=== PATIENT | male | born 1980 | race Caucasian/White ===

== ENCOUNTER 2016-04-01 20:27 | Inpatient (IN) | payer BC ==
[~2016-04-01] VITALS: Ht 188 cm; Wt 84.5 kg
--- NOTE | ~2016-04-01 | OR ---
PATIENT'S NAME: RYANNE FRY AGE: 35 Y [address] ROOM: [address] [place] [id number] LOCATION: [facility] [place] ADMIT DATE: 04/01/2016 OR/Procedure Report DISCHARGE DATE: FAMILY PHYSICIAN: Michaela Parker MD ATTENDING PHYSICIAN: ARABELLA CHA SURGEON: Arabella Cha MD LOGGING ENGINEER: DATE OF PROCEDURE: 04/02/2016 PREOPERATIVE DIAGNOSIS: Right tibia and fibula shaft fractures (distal 1/3 shaft fractures). POSTOPERATIVE DIAGNOSIS: Right tibia and fibula shaft fractures (distal 1/3 shaft fractures). PROCEDURE PERFORMED: Intramedullary rodding of right tibial shaft fracture. ESTIMATED BLOOD LOSS: Less than 100 mL. COMPLICATIONS: None. IMPLANTS: Synthes titanium tibial nail (10 mm x 375 mm with 5 mm proximal end cap), 2 proximal static 5.0 mm locking screws, and 2 distal 5.0 mm static locking screws. INDICATION FOR PROCEDURE: The patient is a 35-year-old male, who injured his right leg when his horse rolled upon him the evening prior to surgery. The injury is closed and neurovascularly intact. There was an oblique fracture of the distal third of the tibial shaft extending down to within approximately 6 cm of the tibial plafond. There is an associated, severely comminuted fracture of the distal third of the fibula shaft above the syndesmosis. There is no syndesmosis widening. Risks, benefits, limitations, and alternatives to this procedure have been thoroughly reviewed, and informed consent has been granted. We have specifically reviewed risks and implications of infection, neurovascular complications, compartment syndrome, malunion, nonunion, neurovascular complications, and potential need for further surgery (including, bone graft). I have emphasized to them that the distal third of the tibia has suboptimal blood supply and that this is associated with potential for delayed union and/or nonunion. They understand and accept this, and informed consent has been granted. DESCRIPTION OF PROCEDURE: The patient was positioned supine. A well-padded pneumatic tourniquet was placed around his right proximal thigh. The right lower extremity was prepped and draped with vigilant sterile technique. The distal third of the tibia was markedly unstable in all planes. Skin was PATIENT'S NAME: RYANNE FRY [facility] AGE: 35 Y [address] ROOM: [id number] [place], [place] [address] LOCATION: [facility] [place] ADMIT DATE: 04/01/2016 OR/Procedure Report DISCHARGE DATE: FAMILY PHYSICIAN: Michaela Parker MD ATTENDING PHYSICIAN: ARABELLA CHA. There was mild swelling. There was mild ecchymosis. 2+ dorsalis pedis pulse. After the right lower extremity had been elevated and exsanguinated with an Esmarch wrap, the pneumatic tourniquet was inflated to 300 mmHg. It should be noted that the tourniquet was released upon initiating reaming. Two 4 mm stab incisions were made over the anterolateral and anteromedial tibia, and blunt dissection proceeded down to the tibial shaft fragments. A pointed reduction clamp was utilized to reduce the fracture. A longitudinal midline incision was made over the patellar tendon. The patellar tendon was split at its midline to expose the entry portal for the nail. A threaded guidewire was utilized to confirm appropriate position of the entry point, and this was confirmed under AP and lateral fluoroscopic guidance. The cylindrical soft tissue protector was inserted down to the entry point, and the entrance reamer was utilized. A ball-tipped guidewire was subsequently placed across the fracture site and it was confirmed to be centrally positioned in the distal fragment under AP and lateral fluoroscopic guidance. The tibia was reamed up to a size 11.5. The 10 mm sanjay was inserted over the guidewire to the appropriate depth while reduction was held, and the guidewire was removed. Anatomic reduction of the tibial fracture was confirmed under AP and lateral fluoroscopic guidance. Two proximal static interlocking screws were placed through the outrigger from medial to lateral, and the proximal end cap was inserted. The distal 2 interlocking screws were placed using the radiolucent drill. Optimal position of the hardware and anatomic reduction of the tibia fracture was confirmed under AP and lateral fluoroscopic guidance. The fibular fracture was noted to be well-aligned (with appropriate length, he had absence of rotational malalignment). It should be noted that the proximal interlocking screws were placed through a single medial stab incision. The distal interlocking screws were placed through 2 separate stab incisions. The interlocking screws had been placed with creation of a superficial incision followed by blunt dissection down to the medial tibial cortex at each of the 4 interlocking screw sites. All incisions were thoroughly irrigated with sterile saline containing bacitracin prior to closure. The patellar tendon was loosely reapproximated with simple interrupted 0 Vicryl. Skin was closed with superficial, buried, interrupted 2-0 Vicryl, followed by surgical live at the proximal incisions. Distal incisions were closed with superficial, buried, interrupted 3-0 Monocryl, followed by horizontal mattress interrupted 3-0 nylon sutures. The dressings consisted of Xeroform gauze, followed by ABD pads, and an Ra wrap followed by a Cam boot. PATIENT'S NAME: RYANNE RFY AGE: 35 Y [address] ROOM: [address] [address] LOCATION: [facility] [place] ADMIT DATE: 04/01/2016 OR/Procedure Report DISCHARGE DATE: FAMILY PHYSICIAN: Michaela Parker MD ATTENDING PHYSICIAN: ARABELLA CHA POSTOPERATIVE REHABILITATION PLAN: Nonweightbearing for 2 months. MD DOMINIQUE CALDERON/eamon /[id number] d: 04/03/16 0747 t: 04/03/16 1405, OPERATIVE SUMMARY
--- NOTE | ~2016-04-01 | ER ---
PATIENT'S NAME: RYANNE FRY [facility] AGE: 35 Y [address] ROOM: [place] [address] LOCATION: [facility] ADMIT DATE: 04/01/2016 ER/Outpatient Report DISCHARGE DATE: FAMILY PHYSICIAN: Michaela Parker MD ATTENDING PHYSICIAN: ARABELLA CHA Admission date and time documented on the medical record. I saw the patient at 2025 hours. CHIEF COMPLAINT: Right tib-fib fracture. HISTORY OF PRESENT ILLNESS: The patient is a 35-year-old male who was transferred from [place] via ground ambulance for evaluation here at [facility] and orthopedic consultation. At 1600 hours, the patient was riding a horse, the horse fell down, he went to the ground, the horse rolled onto his right leg. He was taken to [facility]. X-rays revealed a comminuted, displaced, distal tib-fib fracture. The fracture site is about 3 inches above the ankle joint. Does not involve the joint that I could see. Is was a closed fracture. The patient was in an air splint on arrival here. He was awake, alert, responsive. Denied any head pain, neck pain, spine pain. No eyes, ears, nose, or throat pain. No lightheadedness, dizziness, syncope, or near syncope. No other trauma. No recent cough, colds, flus, fever, chills, or sweats. No chest pain or shortness of breath. No abdominal pain, nausea, vomiting, diarrhea. No urinary symptomatology. Other than the right lower leg injury with a tib-fib fracture, he has no other extremity injuries or problems. No skin eruptions or rashes. No history of neuro changes, psych issues, endocrine problems. HOME MEDICATIONS: See attached medication list. ALLERGIES: NONE. SOCIAL HISTORY: Nonsmoker. Occasional intake of alcohol. SIGNIFICANT PAST MEDICAL HISTORY: Gastroesophageal reflux. OPERATIONS: Fundoplication, left wrist surgery. REVIEW OF SYSTEMS: All systems reviewed by me are negative with the exception of those discussed PATIENT'S NAME: RYANNE FRY [facility] AGE: 35 Y [address] ROOM: [place] [address] LOCATION: [facility] ADMIT DATE: 04/01/2016 ER/Outpatient Report DISCHARGE DATE: FAMILY PHYSICIAN: Michaela Parker MD ATTENDING PHYSICIAN: ARABELLA CHA in the history of present illness. PHYSICAL EXAMINATION: VITAL SIGNS: Temperature 98.9, tympanic; pulse 83; respirations 16; blood pressure 144/79; O2 saturation on room air was 94%. HEENT: Head, normocephalic. No abrasion, contusion, laceration, or swelling of the scalp or face. Eyes, extraocular muscles intact. PERRL. Ears, clear TMs bilaterally. Nose, clear. Throat, clear. Mucous membranes moist. Teeth and jaw, intact. NECK: No nuchal rigidity. No thyromegaly or cervical adenopathy. No tenderness with full range of motion. SPINE: Negative. LUNGS: Clear. No rales, rhonchi, or wheezes. HEART: Regular. Pulses are palpable. No chest wall or ribcage pain to palpation. ABDOMEN: Soft, nondistended, nontender. Good bowel tones. No organomegaly or abnormal masses palpable. PELVIS: Stable. Nontender. EXTREMITIES: The patient's right lower extremity is in an Aircast. He has some bruising and some swelling. There are no open lacerations or abrasions. This is a closed fracture. No other peripheral edema, cyanosis, or deformity of the other extremities. Capillary refill of the right foot and pulses are intact. NEUROVASCULAR: Intact. SKIN: Clear other than the bruising around the fracture site of the right distal lower leg. LABORATORY DATA AND X-RAYS: I reviewed the patient's right tib-fib x-rays which showed comminuted, mildly displaced fracture of the distal tib-fib. IMPRESSION: 1. Distal right tib-fib fracture, closed, comminuted, and mildly displaced. 2. History of gastroesophageal reflux. PLAN: Discussed the patient with Dr. Cha, the orthopedic surgeon. Dr. Cha is coming to the emergency room to evaluate the patient. We will proceed on his recommendations. Discussed this with the patient, he understands. JOHN DAVENPORT MD PATIENT'S NAME: RYANNE FRY [facility] AGE: 35 Y [address] ROOM: [address] [place], [place] [address] LOCATION: [facility] ADMIT DATE: 04/01/2016 ER/Outpatient Report DISCHARGE DATE: FAMILY PHYSICIAN: Michaela Parker MD ATTENDING PHYSICIAN: ARABELLA CHA/eamon /[id number] d: 04/02/16141 t: 04/06/16 1831, OUTPATIENT REPORT
--- NOTE | ~2016-04-01 | HP ---
PATIENT'S NAME: RYANNE HINOJOSA [facility] AGE: 35 Y [address] ROOM: [place] [address] LOCATION: [facility] ADMIT DATE: 04/01/2016 History & Physical DISCHARGE DATE: FAMILY PHYSICIAN: Michaela Parker MD ATTENDING PHYSICIAN: ARABELLA CHA DATE OF SERVICE: HISTORY OF PRESENT ILLNESS: Mr. Hinojosa is a 35-year-old male who presents to the [facility] Emergency Room (transferred from the [facility]) after having been diagnosed with a comminuted right distal tibia and fibula fractures after his horse rolled over upon him at 4:00 p.m. today. He denies pain elsewhere as a result of the incident. He specifically denies pain at the ipsilateral knee. Pain is localized to the distal tibia and fibula. He denies numbness or paresthesias at his right foot. He denies pain in any of his other 3 extremities. He denies head trauma or loss of consciousness. He denies cervical spine pain. PAST MEDICAL HISTORY: Significant for gastroesophageal reflux disease. Of note, he was scheduled to undergo endoscopy next week. PRESENT MEDICATIONS: Prilosec. ALLERGIES: NO KNOWN DRUG ALLERGIES. PAST SURGICAL HISTORY: Open reduction and internal fixation, left forearm fracture, repair of the left hand complex laceration associated with PTO injury. REVIEW OF SYSTEMS: No numbness or paresthesias in the right lower extremity. No head trauma or loss of consciousness. No history of DVT. No pain in his other 3 extremities. SOCIAL HISTORY: Single. His girlfriend is a nurse here at the hospital. He is accompanied by both parents who are appropriately concerned. Works as a small-rancher. Nonsmoker. PHYSICAL EXAMINATION: GENERAL: Alert, oriented, well-hydrated, well-nourished pleasant cooperative male. He reports that analgesia has been adequate. There is moderate swelling and significant focal tenderness over the distal third of the tibia PATIENT'S NAME: RYANNE HINOJOSA [facility] AGE: 35 Y [address] ROOM: [place] [address] LOCATION: [facility] ADMIT DATE: 04/01/2016 History & Physical DISCHARGE DATE: FAMILY PHYSICIAN: Michaela Parker MD ATTENDING PHYSICIAN: ARABELLA CHA and fibula. There is no swelling or tenderness at the ipsilateral knee or foot. 2+ dorsalis pedis pulse. The right foot is slightly externally rotated relative to the knee, but there is no tenting of the skin and there is no angular deformity of the distal tibia. SKIN: Intact throughout the right lower extremity. There is no swelling or tenderness throughout the left lower extremity. He demonstrates painless, unrestricted range of motion of both shoulders, elbows, and wrists. Sensation to light touch is intact throughout the right foot. There is no effusion at the right knee. RADIOGRAPHS: AP, and lateral radiographs of the distal 2/3rd of the right tibia and fibula demonstrate a comminuted fracture of the distal 3rd of the fibula shaft with a large lateral butterfly fragment. There is an associated spiral fracture of the distal tibia with a nondisplaced fracture line extending down to within 5 cm of the tibial plafond. The fracture does not extend intra-articularly. IMPRESSION: Markedly unstable distal tibia and fibula fractures, right lower extremity and gastroesophageal reflux disease. RECOMMENDATIONS: I have discussed the operative and nonoperative options. I have recommended open reduction and internal fixation. I have discussed potential adverse sequelae of the injury as well as risks, benefits, limitations, and alternatives to surgery. I have explained that a final decision regarding whether or not to perform intramedullary rodding versus open reduction and internal fixation with a locking plate will be made after fluoroscopic examination under anesthesia. They understand that a mini open approach (combined with rodding) may be indicated. I have discussed the potential for infection, malunion, nonunion, neurovascular complications, thromboembolic disease, and potential need for further surgery (including the potential need for bone grafting). I have informed the patient and his family members to expect at least 2 months of nonweightbearing. All of their questions and concerns have been answered to their satisfaction. MD DOMINIQUE CALDERON/eamon PATIENT'S NAME: RYANNE HINOJOSA [facility] AGE: 35 Y [address] ROOM: [place] [address] LOCATION: [facility] ADMIT DATE: 04/01/2016 History & Physical DISCHARGE DATE: FAMILY PHYSICIAN: Michaela Parker MD ATTENDING PHYSICIAN: ARABELLA CHA /[id number] D: [id number] T: [id number] HISTORY & PHYSICAL
[~2016-04-01 20:27] MED LIST: PRILOSEC20 MG PO
--- NOTE | 2016-04-02 | NUR ---
Patient arrived on floor from ER at 2330, he came by ambulance from [facility], has tib/fib fracture to the left leg which is in an air compression splint, it is to stay in place until he has surgery, NPO at midnight, csm is with in normal limits, left foot does feel cool.
--- NOTE | 2016-04-02 04:50 | NUR ---
Patient alert and oriented x3, very pleasant and cooperative, csm with in normal limits, right foot slightly cool, air compression spilint in place to right leg, NPO since midnight, pain has been undercontrol using IV Morphine, to have surgery today
--- NOTE | 2016-04-02 13:02 | NUR ---
Patient left for or at 1045. Prior to leaving had morphine 2 mg IV 3 times the last time at 1003 then has 2.5 mg of iv valium twice the last time at 1033. Remains NPO. Air splint remains on to right leg. Csm within normal limits. Voiding per urinal without dificulty. Verbalized an understanding of procedure and family at bedside.
--- NOTE | 2016-04-02 17:00 | NUR ---
I ATTEMPTED TO SPEAK TO PATIENT REGARDING CM AND OUR ROLE. BUT PATIENT IS NOT BACK TO HIS ROOM FROM SURGERY AT THIS TIME.
--- NOTE | 2016-04-03 04:56 | NUR ---
Patient alert and oriented x3, very pleasant and cooperative, boot in place to right lower leg, ice to right knee, dressing clean dry and intact, SR VICE PRESIDENT in place, pain well undercontrol, non-weight bearing to the right leg, possible discharge today if pain is stable.
[2016-04-03] MEDS ORDERED: LOVENOX 4040 MG/0.4 SUB-Q (14:06)
[2016-04-03] MEDS ORDERED: PERCOCET 5-3251 EACH PO (14:07)
--- NOTE | 2016-04-03 19:29 | NUR ---
PATIENT DIMSISSED TO HOME WITH PARENTS. RX SLIP, RETURN APPT INSTRUCTIONS, DIMSISSAL TEACHING, NEW MEDS REVIEWED, ALL SENT WITH PATIENT. PATIENT AND MOTHER VERBALIZE UNDERSTANDING OF INSTRUCITONS. TO FRONT DOOR WITH TRANSPORT IN W/C.
[2016-04-06] MEDS ORDERED: CARAFATE1 GM PO (08:59)
== END 2016-04-03 14:00 | disposition disaster alternative care site (69) | DRG 494 ==
LOC: GACC 20:27 → G3N 21:58 → GMSU 21:58 → G3N 21:58 → GMSU 04-02 13:35
PROVIDERS: ADMIT Orthopaedic Surgery
PROC: 0QSJ06Z Reposition Right Fibula with Intramedullary Internal Fixation Device, Open Approach (ICD-10-PCS; principal; 2016-04-02)
PROC: 0QSG06Z Reposition Right Tibia with Intramedullary Internal Fixation Device, Open Approach (ICD-10-PCS; 2016-04-02)
DX: S82.251A Displaced comminuted fracture of shaft of right tibia, initial encounter for closed fracture (principal); K21.9 Gastro-esophageal reflux disease without esophagitis; S82.451A Displaced comminuted fracture of shaft of right fibula, initial encounter for closed fracture; W55.12XA Struck by horse, initial encounter
CPT/HCPCS: C1713; J0131; J0690; J1650; J2270; J3010; J3360; J7030; J7121